=== PATIENT | male | born 1950 | race Caucasian/White ===

== ENCOUNTER 2016-12-05 15:36 | Emergency (ER) | payer MEDICARE, BC ==
[2016-12-05] MEDS ORDERED: Isosorbide Mononitrate 30 MG Tab.ER PO ONE (16:40)
[2016-12-05 18:28] VITALS: BP 142/87
--- NOTE | 2016-12-07 12:10 | CR ---
INDICATION: Chest pain. History of scleroderma. CHEST: Portable AP upright view of the chest was obtained 12/05/2016. No comparisons were available. The costophrenic angles were not included on the study, limiting the examination somewhat. A definite active infiltrate or effusion was not identified. Evidence of previous rib fracture is noted on the right posteriorly and laterally. The heart appears near the upper limits of normal in size. The aorta is tortuous with calcification in the arch. Overlying EKG leads are noted. IMPRESSION: No acute process. Costophrenic angles were not included on the examination. MTDD
--- NOTE | 2016-12-08 08:48 | ER ---
DATE SEEN: 12/05/2016 TIME SEEN: The patient was seen at 1555 hours. HISTORY OF PRESENT ILLNESS: This 66-year-old gentleman comes in with a history of on and off chest discomfort. He has chest pain which lasts for a few minutes up to a few seconds. He has known scleroderma, diagnosed in 2001 after years were taken to make the diagnosis of scleroderma and weight loss of 70 pounds. He was diagnosed with scleroderma approximately 15 years ago and has been on prednisone since then. He feels weak. He can walk with his legs, but on and off he has weakness in his legs. Most of his chest discomfort is in the left superior and anterior chest (above the upper most part of the pectoral region), and it comes off and on, lasts a minute, sometimes 2 minutes. Not associated with heavy work. The patient notes his chest discomfort increases when he lies on his left side and decreases when he lies on his right side. He sometimes feels lightheaded, slightly dizzy. MEDICATIONS: 1. Prednisone 5 mg b.i.d. plus calcium carbonate. 2. Hydrocodone. 3. Vitamin D. 4. Trazodone 150 mg. 5. Simvastatin 20 mg at bedtime. 6. Omeprazole 40 mg daily. 7. Minocycline and prednisone for his scleroderma. 8. Levothyroxine 125 mcg daily. ALLERGIES: He is allergic to bee stings and milk. REVIEW OF SYSTEMS: Negative except for noted above. He feels weak, tired, decreased muscle strength, and tires with walking. Denies chest pain with walking. The chest pain as described above only lasts for few seconds up to minutes, and is intermittently recurrent throughout the day depending on exercise, activity and exertion. FAMILY HISTORY: Mother at age 96, pneumonia. Father had prostate cancer and . Two brothers and one sister, alive and well. One brother has 7 stents. SOCIAL HISTORY: The patient stopped smoking in the . PHYSICAL EXAMINATION: VITAL SIGNS: Blood pressure 164/75, heart rate 70, respirations 13, oxygen saturation 100%. GENERAL: This is an overweight male, slightly anxious. He has a known factor V deficiency. He is not taking medicines or anticoagulants nor is he taking NOAC, nor does he have dual platelet inhibitors. He just takes aspirin. HEENT: PERRLA intact. Pharynx without abnormality. NECK: Supple. No thyromegaly or masses in the neck. HEART: S1, S2. No murmur. No irregular rate and rhythm. LUNGS: Clear to auscultation without rales, rhonchi, or wheezes. Reproducible chest wall pain with pressure palpation of the left 4th, 5th, and 6th costochondral joints. There is no step-off. No erythema, redness or increased warmth. ABDOMEN: Soft, nontender. No guarding. No abdominal discomfort. No hepatosplenomegaly. EXTREMITIES: Without edema. Deep tendon reflexes normal in upper and lower extremities, but hypoactive, normal. NEUROLOGIC: Cranial nerves 2 through 12 intact. Oriented x3. Gait appropriate. No spinous process tenderness. 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 LAB FINDINGS: White count is normal at 7000, PMNs 82, lymphocytes 10, monos 7, hemoglobin 14.7, platelets 198,000. D-dimer 237. Complete metabolic panel is normal except for BUN and creatinine ratio slightly increased 26.3. Troponin less than 0.01. Alkaline phosphatase is noted to be low. Urinalysis is normal, rare bacteria. ASSESSMENT: 1) Scleroderma associated costochondritis, 4, 5 and 6 ribs, left side, secondary to strain, activities, accentuated when he lies on his left side, better when he lies on his right side. 2) Chronic prednisone induced muscle wasting with associated weakness and increasing difficulty walking. PLAN: Per patient, he has had intermittent problems with his scleroderma. Follow up with his doctor and consider Rheumatology consultation regarding non prednisone use of biologics. For any chest or cardiovascular issues, I have prescribed Imdur 30 mg, take 1 tablet daily. At this point, the probability of ischemia is still high, but is not suggested on the EKG. The EKG has an abnormal R-wave progression across the anterior precordial, which would suggest that he has an old anterior myocardial infarction, although he is not aware of this. He has decreased muscle mass secondary to prednisone use. I think his discomfort and tiredness are catching up to him after he has taken his prednisone for so many years, the decreased muscle mass has decreased his ability to manage. Also, prednisone chronic use can make him quite depressed. Follow up with doctor in a week or earlier if worse. DIAGNOSES: 1. Weakness and tiredness secondary to prednisone. 2. Scleroderma, diagnosed in 2001. 3. Chronic prednisone use with muscle wasting. 4. Lightheadedness and dizziness secondary to decondition, also mild postural hypotension. The patient was taught exercise to improve his circulation in his legs to return the blood to his cerebral circulation. No evidence for myocardial infarction. History of hypertension. Transient elevation in blood pressure in the ED tonight. /[id number] JACI/MAXIMILIANO RECIO
== END 2016-12-05 18:05 | disposition home or self-care (01) ==
LOC: FB.ED 15:36
DX: M94.0 Chondrocostal junction syndrome [Tietze] (principal); M34.9 Systemic sclerosis, unspecified; R53.1 Weakness; Z91.030 Bee allergy status; Z91.011 Allergy to milk products
CPT/HCPCS: 36415; 71010; 80053; 81001; 84443; 84484; 85025; 85379; 99285; A9270; 99283